=== PATIENT | male | born 1970 | race Caucasian/White ===

== ENCOUNTER 2021-01-17 10:23 | Inpatient (IN) ==
[2021-01-17] MEDS ORDERED: Isovue-370 500 ML BOTTLE IVP ONE (11:02)
[2021-01-17] MEDS ORDERED: Cefepime HCl 2,000 MG in Water for inj. (sterile) 20 ML IVP STA (11:16)
[2021-01-17] MEDS ORDERED: MetroNIDAZOLE 500 MG/100 ML 500 MG/100 ML BAG IVPB ONE (11:16)
[2021-01-17] MEDS ORDERED: Vancomycin 1,500 MG/265 ML IV.SOLN IVPB STA (11:22)
[2021-01-17] MEDS ORDERED: Clindamycin 600 MG/50 ML 600 MG/50 ML IV.SOLN IVPB ONE (11:22)
[2021-01-17 12:17] LABS: BUN/Creatinine Ratio 13 (6-26); Basophils % 0.5 %; Blood Urea Nitrogen 8 mg/dL (6-20); Calcium 8.4 mg/dL (8.6-10.3); Carbon Dioxide 27 mEq/L (23-29); Chloride 102 mEq/L (98-107); Eosinophils # 0.1 K/mcL (0.0-0.6); Eosinophils % 1.8 %; Glucose 222 mg/dL (70-105); Hematocrit 31.6 % (37.5-50.1); Hemoglobin 10.8 g/dL (12.9-16.9); Immature Granulocytes % 0.5 % (0-4); Immature Platelets 3.2 % (1.1-6.1); Lymphocytes # 0.9 K/mcL (0.6-4.6); Lymphocytes % 22.6 %; Mean Corpuscular HGB Conc 34.2 g/dL (31.6-35.5); Mean Corpuscular Hemoglobin 36.5 pg (28.0-33.3); Mean Corpuscular Volume 106.8 fL (83.0-100.0); Monocytes % 24.1 %; Osmolality,Calculated 281 (280-300); Platelet Count 141 K/mcL (140-400); Potassium 3.7 mEq/L (3.5-5.1); Red Blood Count 2.96 M/mcL (4.19-5.50); Red Cell Distribution Width 13.6 % (11.5-14.5); Segmented Neutrophils % 50.5 %; Sodium 133 mEq/L (136-145); White Blood Count 3.9 K/mcL (4.3-11.1); eGFR For African Americans > 60 (> 60); eGFR For Non-African Americans > 60 (> 60)
[2021-01-17 12:18] LABS: Monocytes # 0.9 K/mcL (0.0-1.3)
[2021-01-17 13:08] LABS: Platelet Estimate Normal (Normal)
[2021-01-17 13:56] LABS: C-Reactive Protein 48 mg/L (Less than 10)
[2021-01-17] MEDS ORDERED: *HR* HYDROmorphone (PF) 1 MG/ML SYRINGE IVP STA (14:06)
[2021-01-17] MEDS ORDERED: Naloxone 0.4 MG/ML INJ IVP PRN (15:08)
[2021-01-17] MEDS ORDERED: Ondansetron 4 MG/2 ML VIAL IVP PRN (15:08)
[2021-01-17] MEDS ORDERED: *HR* Dextrose 50 % in Water (Syg) 50 ML SYRINGE IVP PRN (15:17)
[2021-01-17] MEDS ORDERED: D5% in Water 1,000 ML IVC PRN (15:17)
[2021-01-17] MEDS ORDERED: Dextrose Gel 15 GM/37.5 ML TUBE PO PRN ×2 (15:17)
[2021-01-17] MEDS: Insulin LISPRO 300 UNITS/3 ML VIAL SUBQ SCH ×2 (18:57→23:00)
[2021-01-17] MEDS: Cefepime HCl 2,000 MG in Water for inj. (sterile) 20 ML IVP SCH (20:57)
[2021-01-17] MEDS: Clindamycin 600 MG/50 ML 600 MG/50 ML IV.SOLN IVPB SCH (20:57)
[2021-01-17] MEDS: *HR* Heparin 5,000 UNIT/ML VIAL SQ SCH (21:54)
[2021-01-17] MEDS: Ringers Solution, Lactated 1,000 ML IVC SCH (21:54)
[2021-01-18] MEDS: Vancomycin 1,500 MG/265 ML IV.SOLN IVPB SCH ×2 (00:41→15:56)
[2021-01-18 00:55] LABS: Immature Granulocytes % 0.4 % (0-4)
[2021-01-18 00:57] LABS: Basophils % 0.4 %; Eosinophils # 0.1 K/mcL (0.0-0.6); Eosinophils % 3.6 %; Hematocrit 28.5 % (37.5-50.1); Hemoglobin 9.6 g/dL (12.9-16.9); Immature Platelets 2.2 % (1.1-6.1); Lymphocytes # 0.8 K/mcL (0.6-4.6); Lymphocytes % 31.2 %; Mean Corpuscular HGB Conc 33.7 g/dL (31.6-35.5); Mean Corpuscular Hemoglobin 35.4 pg (28.0-33.3); Mean Corpuscular Volume 105.2 fL (83.0-100.0); Mean Platelet Volume 10.3 fL (9.4-12.4); Monocytes # 0.6 K/mcL (0.0-1.3); Monocytes % 23.3 %; Platelet Count 106 K/mcL (140-400); Red Blood Count 2.71 M/mcL (4.19-5.50); Red Cell Distribution Width 13.6 % (11.5-14.5); Segmented Neutrophils % 41.1 %; White Blood Count 2.5 K/mcL (4.3-11.1)
[2021-01-18 01:02] LABS: INR 1.6
[2021-01-18 01:14] LABS: Albumin 2.4 g/dL (3.5-5.7); Albumin/Globulin Ratio 0.8 (1.1-2.2); Bilirubin,Direct 0.6 mg/dL (0.0-0.2); Bilirubin,Indirect 0.8 mg/dL (0.0-1.0); Bilirubin,Total 1.4 mg/dL (0.3-1.0); Total Protein 5.4 g/dL (6.4-8.9)
[2021-01-18 01:15] LABS: Blood Urea Nitrogen 5 mg/dL (6-20); Carbon Dioxide 28 mEq/L (23-29); Chloride 104 mEq/L (98-107); Potassium 3.6 mEq/L (3.5-5.1); Sodium 135 mEq/L (136-145)
[2021-01-18 01:16] LABS: BUN/Creatinine Ratio 10 (6-26); Glucose 172 mg/dL (70-105); Magnesium 1.8 mg/dL (1.6-2.6); Osmolality,Calculated 281 (280-300); Phosphorous 2.1 mg/dL (2.7-4.5); eGFR For African Americans > 60 (> 60); eGFR For Non-African Americans > 60 (> 60)
[2021-01-18 01:21] LABS: Platelet Estimate Slight Decrease (Normal)
[2021-01-18] MEDS: *HR* Heparin 5,000 UNIT/ML VIAL SQ SCH ×3 (05:07→20:35)
[2021-01-18] MEDS: Cefepime HCl 2,000 MG in Water for inj. (sterile) 20 ML IVP SCH ×2 (05:08→15:50)
[2021-01-18] MEDS: Clindamycin 600 MG/50 ML 600 MG/50 ML IV.SOLN IVPB SCH ×2 (05:08→15:50)
[2021-01-18] MEDS: Insulin LISPRO 300 UNITS/3 ML VIAL SUBQ SCH ×3 (05:35→16:57)
[2021-01-18 08:31] LABS: Estimated Average Glucose 111 mg/dl; Hemoglobin A1C 5.5 %
[2021-01-18] MEDS ORDERED: *HR* Propofol 200 MG/20 ML VIAL IVP ONE (11:29)
[2021-01-18] MEDS ORDERED: *HR* FentaNYL (PF) 100 MCG/2 ML VIAL ONE (11:30)
[2021-01-18] MEDS ORDERED: Ketorolac 15 MG/ML VIAL IVP PRN (11:35)
[2021-01-18] MEDS ORDERED: *HR* OxyCODONE Immed Rel 5 MG TABLET PO PRN (11:35)
[2021-01-18] MEDS ORDERED: Famotidine 20 MG/2 ML VIAL IVP ONE (11:45)
[2021-01-18] MEDS ORDERED: Acetaminophen IV 1,000 MG/100 ML BAG IVPB ONE (11:45)
[2021-01-18] MEDS ORDERED: Lidocaine/EPI 1:100k 1% 20 ML VIAL ONE (11:56)
[2021-01-18] MEDS ORDERED: Ethanol\\Acetic Acid\\Na Ace\\Ben 1,000 ML IRRIG.SOLN IR ONE (12:47)
[2021-01-18] MEDS ORDERED: Ketorolac 30 MG/ML VIAL ONE (13:03)
[2021-01-18] MEDS ORDERED: Ondansetron 4 MG/2 ML VIAL ONE (13:07)
[2021-01-18] MEDS ORDERED: Ringers Solution, Lactated 1,000 ML ONE (13:09)
[2021-01-18] MEDS: *HR* HYDROmorphone PF 0.5 MG/0.5 ML SYRINGE IVP PRN ×4 (13:55→14:10)
[2021-01-18] MEDS ORDERED: Pregabalin 50 MG CAPSULE PO ONE (14:20)
[2021-01-18] MEDS: Ringers Solution, Lactated 1,000 ML IVC SCH (17:55)
[2021-01-18] MEDS: OLANZapine 5 MG TAB.RAPDIS PO SCH (20:35)
[2021-01-19] MEDS: Cefepime HCl 2,000 MG in Water for inj. (sterile) 20 ML IVP SCH ×4 (01:00→22:22)
[2021-01-19] MEDS: Clindamycin 600 MG/50 ML 600 MG/50 ML IV.SOLN IVPB SCH ×4 (01:00→22:24)
[2021-01-19 01:48] LABS: Hemoglobin 9.9 g/dL (12.9-16.9)
[2021-01-19 01:50] LABS: Basophils % 0.3 %; Hematocrit 30.4 % (37.5-50.1); Immature Granulocytes % 0.6 % (0-4); Immature Platelets 2.8 % (1.1-6.1); Lymphocytes # 0.4 K/mcL (0.6-4.6); Lymphocytes % 12.5 %; Mean Corpuscular HGB Conc 32.6 g/dL (31.6-35.5); Mean Corpuscular Hemoglobin 35.6 pg (28.0-33.3); Mean Corpuscular Volume 109.4 fL (83.0-100.0); Monocytes # 0.4 K/mcL (0.0-1.3); Monocytes % 12.5 %; Neutrophils # 2.6 K/mcL (1.6-8.9); Red Blood Count 2.78 M/mcL (4.19-5.50); Red Cell Distribution Width 13.3 % (11.5-14.5); Segmented Neutrophils % 74.1 %; White Blood Count 3.5 K/mcL (4.3-11.1)
[2021-01-19] MEDS: Insulin LISPRO 300 UNITS/3 ML VIAL SUBQ SCH ×2 (01:58→06:31)
[2021-01-19 02:00] LABS: BUN/Creatinine Ratio 16 (6-26); Blood Urea Nitrogen 15 mg/dL (6-20); Calcium 8.2 mg/dL (8.6-10.3); Carbon Dioxide 23 mEq/L (23-29); Chloride 103 mEq/L (98-107); Glucose 394 mg/dL (70-105); Osmolality,Calculated 291 (280-300); Potassium 4.3 mEq/L (3.5-5.1); Sodium 132 mEq/L (136-145); eGFR For African Americans > 60 (> 60); eGFR For Non-African Americans > 60 (> 60)
[2021-01-19 02:29] LABS: Platelet Count 99 K/mcL (140-400); Platelet Estimate Decreased (Normal)
[2021-01-19] MEDS: Vancomycin 1,500 MG/265 ML IV.SOLN IVPB SCH (02:43)
[2021-01-19] MEDS: *HR* Heparin 5,000 UNIT/ML VIAL SQ SCH (06:32)
[2021-01-19] MEDS ORDERED: Famotidine 20 MG/2 ML VIAL IVP ONE (07:00)
[2021-01-19] MEDS ORDERED: Acetaminophen IV 1,000 MG/100 ML BAG IVPB ONE (07:00)
[2021-01-19] MEDS ORDERED: Pregabalin 75 MG CAPSULE PO ONE (07:00)
[2021-01-19] MEDS: Tenofovir Disoproxil Fumarate 300 MG TABLET PO SCH (07:50)
[2021-01-19] MEDS: Vancomycin 1,750 MG/517.5 ML IV.SOLN IVPB SCH (13:48)
[2021-01-19] MEDS: OLANZapine 5 MG TAB.RAPDIS PO SCH (22:21)
[2021-01-20] MEDS: Vancomycin 1,750 MG/517.5 ML IV.SOLN IVPB SCH (02:41)
[2021-01-20] MEDS: Cefepime HCl 2,000 MG in Water for inj. (sterile) 20 ML IVP SCH ×3 (04:23→21:27)
[2021-01-20] MEDS: Clindamycin 600 MG/50 ML 600 MG/50 ML IV.SOLN IVPB SCH ×3 (04:25→21:29)
[2021-01-20 06:44] LABS: Basophils % 0.2 %; Eosinophils % 0.4 %; Hematocrit 26.2 % (37.5-50.1); Hemoglobin 9.1 g/dL (12.9-16.9); Immature Granulocytes % 1.2 % (0-4); Lymphocytes # 0.6 K/mcL (0.6-4.6); Lymphocytes % 11.4 %; Mean Corpuscular HGB Conc 34.7 g/dL (31.6-35.5); Mean Corpuscular Hemoglobin 36.7 pg (28.0-33.3); Mean Corpuscular Volume 105.6 fL (83.0-100.0); Mean Platelet Volume 10.7 fL (9.4-12.4); Monocytes # 0.6 K/mcL (0.0-1.3); Monocytes % 12.2 %; Neutrophils # 3.9 K/mcL (1.6-8.9); Platelet Count 107 K/mcL (140-400); Red Blood Count 2.48 M/mcL (4.19-5.50); Red Cell Distribution Width 13.5 % (11.5-14.5); Segmented Neutrophils % 74.6 %; White Blood Count 5.2 K/mcL (4.3-11.1)
[2021-01-20 07:04] LABS: BUN/Creatinine Ratio 25 (6-26); Blood Urea Nitrogen 16 mg/dL (6-20); Calcium 7.9 mg/dL (8.6-10.3); Carbon Dioxide 29 mEq/L (23-29); Chloride 105 mEq/L (98-107); Glucose 211 mg/dL (70-105); Osmolality,Calculated 285 (280-300); Potassium 4.8 mEq/L (3.5-5.1); Sodium 134 mEq/L (136-145); eGFR For African Americans > 60 (> 60); eGFR For Non-African Americans > 60 (> 60)
[2021-01-20] MEDS: Tenofovir Disoproxil Fumarate 300 MG TABLET PO SCH (09:42)
[2021-01-20] MEDS: Insulin LISPRO 300 UNITS/3 ML VIAL SUBQ SCH ×2 (14:35→18:49)
[2021-01-20] MEDS: OLANZapine 5 MG TAB.RAPDIS PO SCH (21:26)
[2021-01-21 01:13] LABS: Basophils % 0.6 %; Eosinophils # 0.1 K/mcL (0.0-0.6); Eosinophils % 2.3 %; Hematocrit 27.7 % (37.5-50.1); Hemoglobin 9.6 g/dL (12.9-16.9); Immature Granulocytes % 2.7 % (0-4); Lymphocytes # 0.9 K/mcL (0.6-4.6); Lymphocytes % 18.1 %; Mean Corpuscular HGB Conc 34.7 g/dL (31.6-35.5); Mean Corpuscular Hemoglobin 37.1 pg (28.0-33.3); Mean Corpuscular Volume 106.9 fL (83.0-100.0); Mean Platelet Volume 10.7 fL (9.4-12.4); Monocytes # 0.8 K/mcL (0.0-1.3); Monocytes % 16.5 %; Neutrophils # 2.9 K/mcL (1.6-8.9); Platelet Count 103 K/mcL (140-400); Red Blood Count 2.59 M/mcL (4.19-5.50); Red Cell Distribution Width 14.1 % (11.5-14.5); Segmented Neutrophils % 59.8 %; White Blood Count 4.9 K/mcL (4.3-11.1)
[2021-01-21] MEDS: Insulin LISPRO 300 UNITS/3 ML VIAL SUBQ SCH ×4 (01:18→17:40)
[2021-01-21 01:33] LABS: BUN/Creatinine Ratio 24 (6-26); Blood Urea Nitrogen 14 mg/dL (6-20); Carbon Dioxide 29 mEq/L (23-29); Chloride 105 mEq/L (98-107); Glucose 222 mg/dL (70-105); Magnesium 1.9 mg/dL (1.6-2.6); Osmolality,Calculated 287 (280-300); Phosphorous 2.4 mg/dL (2.7-4.5); Potassium 4.3 mEq/L (3.5-5.1); Sodium 135 mEq/L (136-145); eGFR For African Americans > 60 (> 60); eGFR For Non-African Americans > 60 (> 60)
[2021-01-21 01:36] LABS: Estimated Average Glucose 111 mg/dl; Hemoglobin A1C 5.5 %
[2021-01-21] MEDS: Cefepime HCl 2,000 MG in Water for inj. (sterile) 20 ML IVP SCH (06:44)
[2021-01-21] MEDS: Clindamycin 600 MG/50 ML 600 MG/50 ML IV.SOLN IVPB SCH (06:45)
[2021-01-21] MEDS: Tenofovir Disoproxil Fumarate 300 MG TABLET PO SCH (08:15)
[2021-01-21] MEDS: Propranolol LA (24 HR) 80 MG CAP.SA.24H PO SCH (08:15)
[2021-01-21] MEDS: Ertapenem 1,000 MG in 0.9 % Sodium Chloride Mini Bag 100 ML IVPB SCH (15:19)
[2021-01-21] MEDS: OLANZapine 5 MG TAB.RAPDIS PO SCH (19:34)
[2021-01-22] MEDS: Insulin LISPRO 300 UNITS/3 ML VIAL SUBQ SCH ×4 (00:09→17:08)
[2021-01-22 05:48] LABS: Basophils # 0.1 K/mcL (0.0-0.2); Basophils % 1.2 %; Eosinophils # 0.2 K/mcL (0.0-0.6); Eosinophils % 3.7 %; Hematocrit 30.4 % (37.5-50.1); Hemoglobin 10.3 g/dL (12.9-16.9); Immature Granulocytes % 7.2 % (0-4); Lymphocytes # 1.3 K/mcL (0.6-4.6); Mean Corpuscular HGB Conc 33.9 g/dL (31.6-35.5); Mean Corpuscular Hemoglobin 36.4 pg (28.0-33.3); Mean Corpuscular Volume 107.4 fL (83.0-100.0); Mean Platelet Volume 10.7 fL (9.4-12.4); Monocytes # 0.9 K/mcL (0.0-1.3); Platelet Count 109 K/mcL (140-400); Red Blood Count 2.83 M/mcL (4.19-5.50); Red Cell Distribution Width 14.4 % (11.5-14.5); Segmented Neutrophils % 50.9 %; White Blood Count 5.9 K/mcL (4.3-11.1)
[2021-01-22 06:10] LABS: BUN/Creatinine Ratio 20 (6-26); Blood Urea Nitrogen 13 mg/dL (6-20); Calcium 8.1 mg/dL (8.6-10.3); Carbon Dioxide 28 mEq/L (23-29); Chloride 106 mEq/L (98-107); Glucose 131 mg/dL (70-105); Magnesium 1.8 mg/dL (1.6-2.6); Osmolality,Calculated 284 (280-300); Phosphorous 3.1 mg/dL (2.7-4.5); Potassium 4.3 mEq/L (3.5-5.1); Sodium 136 mEq/L (136-145); eGFR For African Americans > 60 (> 60); eGFR For Non-African Americans > 60 (> 60)
[2021-01-22 06:20] LABS: Anisocytosis 1+ (Not Present); Platelet Estimate Slight Decrease (Normal); Polychromasia 1+ (Not Present)
[2021-01-22] MEDS: Tenofovir Disoproxil Fumarate 300 MG TABLET PO SCH (08:41)
[2021-01-22] MEDS: Propranolol LA (24 HR) 80 MG CAP.SA.24H PO SCH (08:41)
[2021-01-22] MEDS: Ertapenem 1,000 MG in 0.9 % Sodium Chloride Mini Bag 100 ML IVPB SCH (08:42)
[2021-01-22] MEDS: OLANZapine 5 MG TAB.RAPDIS PO SCH (22:02)
[2021-01-23] MEDS: Insulin LISPRO 300 UNITS/3 ML VIAL SUBQ SCH ×4 (00:22→16:24)
[2021-01-23 06:12] LABS: Basophils # 0.1 K/mcL (0.0-0.2); Basophils % 1.3 %; Eosinophils # 0.2 K/mcL (0.0-0.6); Hematocrit 31.2 % (37.5-50.1); Hemoglobin 10.2 g/dL (12.9-16.9); Immature Granulocytes % 8.1 % (0-4); Lymphocytes # 1.2 K/mcL (0.6-4.6); Lymphocytes % 18.5 %; Mean Corpuscular HGB Conc 32.7 g/dL (31.6-35.5); Mean Corpuscular Hemoglobin 35.3 pg (28.0-33.3); Mean Platelet Volume 10.8 fL (9.4-12.4); Monocytes # 0.8 K/mcL (0.0-1.3); Monocytes % 12.5 %; Platelet Count 102 K/mcL (140-400); Red Blood Count 2.89 M/mcL (4.19-5.50); Red Cell Distribution Width 14.6 % (11.5-14.5); Segmented Neutrophils % 56.6 %; White Blood Count 6.3 K/mcL (4.3-11.1)
[2021-01-23 06:16] LABS: Neutrophils # 3.6 K/mcL (1.6-8.9)
[2021-01-23 06:30] LABS: Alanine Aminotransferase 25 Units/L (7-52); Albumin 2.2 g/dL (3.5-5.7); Albumin/Globulin Ratio 0.7 (1.1-2.2); Alkaline Phosphatase 134 Units/L (34-104); Aspartate Amino Transferase 41 Units/L (13-39); BUN/Creatinine Ratio 19 (6-26); Blood Urea Nitrogen 11 mg/dL (6-20); Calcium 8.3 mg/dL (8.6-10.3); Carbon Dioxide 32 mEq/L (23-29); Chloride 104 mEq/L (98-107); Globulin 3.1 g/dL (2.4-3.5); Glucose 161 mg/dL (70-105); Osmolality,Calculated 285 (280-300); Potassium 4.2 mEq/L (3.5-5.1); Sodium 136 mEq/L (136-145); Total Protein 5.3 g/dL (6.4-8.9); eGFR For African Americans > 60 (> 60); eGFR For Non-African Americans > 60 (> 60)
[2021-01-23] MEDS: Propranolol LA (24 HR) 80 MG CAP.SA.24H PO SCH (08:41)
[2021-01-23] MEDS: Ertapenem 1,000 MG in 0.9 % Sodium Chloride Mini Bag 100 ML IVPB SCH (08:41)
[2021-01-23] MEDS: Tenofovir Disoproxil Fumarate 300 MG TABLET PO SCH (08:41)
[2021-01-23] MEDS ORDERED: *HR* OxyCODONE Immed Rel 5 MG TABLET PO PRN (11:57)
[2021-01-23] MEDS ORDERED: Lidocaine/EPI 1:100k 1% 20 ML VIAL ONE (11:59)
[2021-01-23] MEDS ORDERED: Lidocaine -MPF 2% 5 ML VIAL ONE (12:01)
[2021-01-23] MEDS ORDERED: *HR* FentaNYL (PF) 100 MCG/2 ML VIAL ONE (12:01)
[2021-01-23] MEDS ORDERED: *HR* Midazolam HCl 2 MG/2 ML VIAL ONE (12:01)
[2021-01-23] MEDS ORDERED: Famotidine 20 MG/2 ML VIAL IVP ONE (12:28)
[2021-01-23] MEDS ORDERED: Ethanol\\Acetic Acid\\Na Ace\\Ben 1,000 ML IRRIG.SOLN IR ONE (13:16)
[2021-01-23] MEDS: *HR* HYDROmorphone PF 0.5 MG/0.5 ML SYRINGE IVP PRN ×4 (14:12→14:35)
[2021-01-23] MEDS: OLANZapine 5 MG TAB.RAPDIS PO SCH (19:41)
[2021-01-24] MEDS: Insulin LISPRO 300 UNITS/3 ML VIAL SUBQ SCH ×4 (01:20→16:07)
[2021-01-24 05:28] LABS: Immature Granulocytes % 3.2 % (0-4); Mean Platelet Volume 10.9 fL (9.4-12.4)
[2021-01-24 05:30] LABS: Basophils % 0.2 %; Eosinophils % 0.2 %; Hematocrit 29.6 % (37.5-50.1); Hemoglobin 9.9 g/dL (12.9-16.9); Immature Platelets 3.2 % (1.1-6.1); Lymphocytes # 0.6 K/mcL (0.6-4.6); Lymphocytes % 8.6 %; Mean Corpuscular HGB Conc 33.4 g/dL (31.6-35.5); Mean Corpuscular Volume 107.6 fL (83.0-100.0); Monocytes # 0.7 K/mcL (0.0-1.3); Monocytes % 10.5 %; Red Blood Count 2.75 M/mcL (4.19-5.50); Red Cell Distribution Width 14.1 % (11.5-14.5); Segmented Neutrophils % 77.3 %; White Blood Count 6.5 K/mcL (4.3-11.1)
[2021-01-24 05:33] LABS: Platelet Count 90 K/mcL (140-400)
[2021-01-24 05:46] LABS: Alanine Aminotransferase 24 Units/L (7-52); Albumin 2.3 g/dL (3.5-5.7); Albumin/Globulin Ratio 0.8 (1.1-2.2); Alkaline Phosphatase 123 Units/L (34-104); Aspartate Amino Transferase 41 Units/L (13-39); BUN/Creatinine Ratio 21 (6-26); Bilirubin,Total 1.1 mg/dL (0.3-1.0); Blood Urea Nitrogen 15 mg/dL (6-20); Calcium 8.4 mg/dL (8.6-10.3); Carbon Dioxide 29 mEq/L (23-29); Chloride 103 mEq/L (98-107); Globulin 2.9 g/dL (2.4-3.5); Glucose 351 mg/dL (70-105); Osmolality,Calculated 293 (280-300); Potassium 4.9 mEq/L (3.5-5.1); Sodium 134 mEq/L (136-145); Total Protein 5.2 g/dL (6.4-8.9); eGFR For African Americans > 60 (> 60); eGFR For Non-African Americans > 60 (> 60)
[2021-01-24] MEDS: Tenofovir Disoproxil Fumarate 300 MG TABLET PO SCH (07:07)
[2021-01-24] MEDS: Propranolol LA (24 HR) 80 MG CAP.SA.24H PO SCH (07:07)
[2021-01-24] MEDS: Ertapenem 1,000 MG in 0.9 % Sodium Chloride Mini Bag 100 ML IVPB SCH (07:08)
[2021-01-24] MEDS: OLANZapine 5 MG TAB.RAPDIS PO SCH (20:25)
[2021-01-24] MEDS ORDERED: Insulin DETEMIR 100 UNIT/ML X5UNITS SUBQ SCH (21:00)
[2021-01-25 05:00] LABS: Monocytes # 0.9 K/mcL (0.0-1.3); Monocytes % 13.8 %; Red Cell Distribution Width 14.1 % (11.5-14.5); White Blood Count 6.4 K/mcL (4.3-11.1)
[2021-01-25 05:02] LABS: Basophils % 0.3 %; Eosinophils # 0.1 K/mcL (0.0-0.6); Eosinophils % 1.6 %; Hematocrit 28.8 % (37.5-50.1); Hemoglobin 9.8 g/dL (12.9-16.9); Immature Platelets 3.8 % (1.1-6.1); Lymphocytes # 0.9 K/mcL (0.6-4.6); Lymphocytes % 14.5 %; Mean Corpuscular Hemoglobin 36.3 pg (28.0-33.3); Mean Corpuscular Volume 106.7 fL (83.0-100.0); Neutrophils # 4.3 K/mcL (1.6-8.9); Segmented Neutrophils % 67.8 %
[2021-01-25 05:03] LABS: Platelet Count 90 K/mcL (140-400)
[2021-01-25] MEDS ORDERED: *HR* Enoxaparin 40 MG/0.4 ML SYRINGE SQ SCH (06:00)
[2021-01-25] MEDS: Propranolol LA (24 HR) 80 MG CAP.SA.24H PO SCH (07:59)
[2021-01-25] MEDS: Tenofovir Disoproxil Fumarate 300 MG TABLET PO SCH (07:59)
[2021-01-25] MEDS: Ertapenem 1,000 MG in 0.9 % Sodium Chloride Mini Bag 100 ML IVPB SCH (07:59)
[2021-01-25] MEDS: Insulin LISPRO 300 UNITS/3 ML VIAL SUBQ SCH ×3 (08:05→17:36)
[2021-01-25 08:06] VITALS: O2SAT 95
[2021-01-25 08:49] LABS: Alanine Aminotransferase 28 Units/L (7-52); Albumin 2.4 g/dL (3.5-5.7); Albumin/Globulin Ratio 0.9 (1.1-2.2); Alkaline Phosphatase 142 Units/L (34-104); Aspartate Amino Transferase 39 Units/L (13-39); BUN/Creatinine Ratio 24 (6-26); Bilirubin,Total 0.9 mg/dL (0.3-1.0); Blood Urea Nitrogen 13 mg/dL (6-20); Calcium 8.2 mg/dL (8.6-10.3); Carbon Dioxide 30 mEq/L (23-29); Chloride 104 mEq/L (98-107); Globulin 2.8 g/dL (2.4-3.5); Glucose 239 mg/dL (70-105); Osmolality,Calculated 288 (280-300); Potassium 3.8 mEq/L (3.5-5.1); Sodium 135 mEq/L (136-145); Total Protein 5.2 g/dL (6.4-8.9); eGFR For African Americans > 60 (> 60); eGFR For Non-African Americans > 60 (> 60)
[2021-01-25 14:17] LABS: Adenovirus Not Detected (Not Detect); Bordetella Pertussis Not Detected (Not Detect); Chlamydophila pneumoniae Not Detected (Not Detect); Coronavirus 229E Not Detected (Not Detect); Coronavirus HKU1 Not Detected (Not Detect); Coronavirus NL63 Not Detected (Not Detect); Coronavirus OC43 Not Detected (Not Detect); Human Metapneumovirus Not Detected (Not Detect); Human Rhinovirus/Enterovirus Not Detected (Not Detect); Influenza A Subtype 2009 H1 Not Detected (Not Detect); Influenza B Not Detected (Not Detect); Mycoplasma pneumoniae Not Detected (Not Detect); Parainfluenza Virus 1 Not Detected (Not Detect); Parainfluenza Virus 2 Not Detected (Not Detect); Parainfluenza Virus 3 Not Detected (Not Detect); Parainfluenza Virus 4 Not Detected (Not Detect); Respiratory Syncytial Virus Not Detected (Not Detect); SARS-CoV-2 Not Detected (Not Detect)
[2021-01-25 20:04] VITALS: BP 130/76; PULSE 79; TEMP 98.4
== END 2021-01-24 21:00 | DRG 316 ==
LOC: EMEROOARM 10:23 → 3BNU 10:23 → SUATTDRO 15:33 → 3BNU 17:04
PROVIDERS: ADMIT Student in an Organized Health Care Education/Training Program; ATTEND Internal Medicine

== ENCOUNTER 2021-03-08 19:30 | Inpatient (IN) ==
[2021-03-08 22:22] LABS: Basophils % 0.4 %; Red Cell Distribution Width 13.8 % (11.5-14.5)
[2021-03-08 22:24] LABS: Eosinophils # 0.1 K/mcL (0.0-0.6); Eosinophils % 2.7 %; Immature Granulocytes % 0.4 % (0-4); Immature Platelets 4.6 % (1.1-6.1); Lymphocytes # 0.7 K/mcL (0.6-4.6); Lymphocytes % 27.4 %; Mean Corpuscular HGB Conc 33.3 g/dL (31.6-35.5); Mean Platelet Volume 11.2 fL (9.4-12.4); Monocytes # 0.5 K/mcL (0.0-1.3); Monocytes % 18.6 %; Neutrophils # 1.3 K/mcL (1.6-8.9); Red Blood Count 2.94 M/mcL (4.19-5.50); Segmented Neutrophils % 50.5 %; White Blood Count 2.6 K/mcL (4.3-11.1)
[2021-03-08 22:25] LABS: Platelet Count 57 K/mcL (140-400)
[2021-03-08 22:37] LABS: BUN/Creatinine Ratio 16 (6-26); Blood Urea Nitrogen 11 mg/dL (6-20); Calcium 8.3 mg/dL (8.6-10.3); Carbon Dioxide 26 mEq/L (23-29); Chloride 102 mEq/L (98-107); Glucose 149 mg/dL (70-105); Osmolality,Calculated 280 (280-300); Potassium 3.6 mEq/L (3.5-5.1); Sodium 134 mEq/L (136-145); eGFR For African Americans > 60 (> 60); eGFR For Non-African Americans > 60 (> 60)
[2021-03-08] MEDS ORDERED: Piperacillin/Tazobactam 3.375 GM in 0.9 % Sodium Chloride Mini Bag 100 ML IVPB ONE (23:22)
[2021-03-08] MEDS ORDERED: Vancomycin 2,000 MG/520 ML IV.SOLN IVPB ONE (23:22)
[2021-03-09] MEDS ORDERED: 0.9 % Sodium Chloride 1,000 ML IVC ONE (00:31)
[2021-03-09] MEDS ORDERED: MOM Conc 10 ML UD.LIQ PO PRN ×2 (00:57→20:05)
[2021-03-09] MEDS ORDERED: Melatonin 3 MG TABLET PO PRN ×2 (00:57→20:05)
[2021-03-09] MEDS ORDERED: Acetaminophen 325 MG TABLET PO PRN (00:57)
[2021-03-09] MEDS ORDERED: Ondansetron 4 MG/2 ML VIAL IVP PRN ×2 (00:57→20:05)
[2021-03-09] MEDS ORDERED: Naloxone 0.4 MG/ML INJ IVP PRN ×2 (00:57→20:05)
[2021-03-09] MEDS ORDERED: Dextrose Gel 15 GM/37.5 ML TUBE PO PRN ×4 (03:13→20:05)
[2021-03-09] MEDS ORDERED: D5% in Water 1,000 ML IVC PRN ×2 (03:13→20:05)
[2021-03-09] MEDS ORDERED: *HR* Dextrose 50 % in Water (Syg) 50 ML SYRINGE IVP PRN ×2 (03:13→20:05)
[2021-03-09] MEDS ORDERED: Perflutren Lipid Microsphere 1.3 ML in 0.9 % Sodium Chloride 8.7 ML IVP PRN ×2 (04:39→20:05)
[2021-03-09] MEDS ORDERED: Albumin 25% 25gram/100mL 25 GM/100 ML IV.SOLN IVPB ONE (04:43)
[2021-03-09] MEDS ORDERED: 0.9 % Sodium Chloride 1,000 ML IVC SCH ×2 (04:45→20:05)
[2021-03-09 04:50] LABS: Hemoglobin 9.6 g/dL (12.9-16.9); Red Cell Distribution Width 13.7 % (11.5-14.5)
[2021-03-09 04:52] LABS: Basophils % 0.5 %; Eosinophils # 0.1 K/mcL (0.0-0.6); Eosinophils % 3.6 %; Hematocrit 28.5 % (37.5-50.1); Immature Granulocytes % 0.5 % (0-4); Immature Platelets 4.4 % (1.1-6.1); Lymphocytes # 0.7 K/mcL (0.6-4.6); Lymphocytes % 32.6 %; Mean Corpuscular HGB Conc 33.7 g/dL (31.6-35.5); Mean Corpuscular Hemoglobin 33.8 pg (28.0-33.3); Mean Corpuscular Volume 100.4 fL (83.0-100.0); Mean Platelet Volume 10.6 fL (9.4-12.4); Monocytes # 0.5 K/mcL (0.0-1.3); Monocytes % 20.4 %; Neutrophils # 0.9 K/mcL (1.6-8.9); Red Blood Count 2.84 M/mcL (4.19-5.50); Segmented Neutrophils % 42.4 %; White Blood Count 2.2 K/mcL (4.3-11.1)
[2021-03-09 04:55] LABS: Platelet Count 56 K/mcL (140-400)
[2021-03-09 05:03] LABS: INR 1.6; Prothrombin Time 18.1 Seconds (9.4-12.1)
[2021-03-09 05:06] LABS: Activated Partial Thrombo Time 39.1 Seconds (26.0-36.0); BUN/Creatinine Ratio 16 (6-26); Blood Urea Nitrogen 10 mg/dL (6-20); Carbon Dioxide 27 mEq/L (23-29); Chloride 105 mEq/L (98-107); Glucose 102 mg/dL (70-105); Osmolality,Calculated 281 (280-300); Potassium 3.7 mEq/L (3.5-5.1); Sodium 136 mEq/L (136-145); eGFR For African Americans > 60 (> 60); eGFR For Non-African Americans > 60 (> 60)
[2021-03-09 05:15] LABS: Alanine Aminotransferase 19 Units/L (7-52); Albumin 2.5 g/dL (3.5-5.7); Alkaline Phosphatase 92 Units/L (34-104); Aspartate Amino Transferase 53 Units/L (13-39); Bilirubin,Direct 0.7 mg/dL (0.0-0.2); Bilirubin,Indirect 1.3 mg/dL (0.0-1.0); Globulin 2.6 g/dL (2.4-3.5); Total Protein 5.1 g/dL (6.4-8.9)
[2021-03-09] MEDS: Insulin LISPRO 300 UNITS/3 ML VIAL SUBQ SCH ×2 (06:19→12:09)
[2021-03-09] MEDS ORDERED: Cefepime HCl 1,000 MG in Water for inj. (sterile) 10 ML IVP SCH (08:00)
[2021-03-09] MEDS: Piperacillin/Tazobactam 3.375 GM in 0.9 % Sodium Chloride Mini Bag 100 ML IVPB SCH ×2 (08:59→19:36)
[2021-03-09] MEDS ORDERED: *HR* FentaNYL (PF) 100 MCG/2 ML VIAL ONE (15:58)
[2021-03-09] MEDS ORDERED: *HR* Propofol 200 MG/20 ML VIAL IVP ONE (15:58)
[2021-03-09] MEDS ORDERED: Ondansetron 4 MG/2 ML VIAL ONE (15:58)
[2021-03-09] MEDS ORDERED: Lidocaine -MPF 2% 5 ML VIAL ONE (15:58)
[2021-03-09] MEDS ORDERED: Vancomycin 1,500 MG/265 ML IV.SOLN IVPB SCH (16:00)
[2021-03-09] MEDS ORDERED: Ringers Solution, Lactated 1,000 ML IVC SCH (16:00)
[2021-03-09] MEDS ORDERED: *HR* Midazolam HCl 2 MG/2 ML VIAL ONE (16:22)
[2021-03-09] MEDS ORDERED: Ketorolac 30 MG/ML VIAL ONE (16:22)
[2021-03-09] MEDS ORDERED: *HR* Metoprolol 5 MG/5 ML VIAL IVP ONE ×3 (16:27→20:05)
[2021-03-09] MEDS ORDERED: Lidocaine/EPI 1:100k 1% 30 ML VIAL ONE (16:35)
[2021-03-09 18:56] LABS: Amphetamine Screen,Urine Positive ng/mL (Cutoff=1000); Barbiturate Screen,Urine Negative ng/mL (Cutoff=200); Benzodiazepines Screen,Urine Negative ng/mL (Cutoff=200); Cannabinoid Screen,Urine Negative ng/mL (Cutoff = 50); Cocaine Screen,Urine Negative ng/mL (Cutoff= 300); Opiate Screen,Urine Negative ng/mL (Cutoff=300); Phencyclidine Screen,Urine Negative ng/mL (Cutoff=25)
[2021-03-09] MEDS ORDERED: 0.9 % Sodium Chloride 1,000 ML ONE (19:29)
[2021-03-09] MEDS: Ringers Solution, Lactated 1,000 ML IVC SCH (21:36)
[2021-03-10] MEDS: Insulin LISPRO 300 UNITS/3 ML VIAL SUBQ SCH ×5 (00:02→20:58)
[2021-03-10] MEDS: Piperacillin/Tazobactam 3.375 GM in 0.9 % Sodium Chloride Mini Bag 100 ML IVPB SCH ×3 (03:07→22:00)
[2021-03-10] MEDS: Vancomycin 1,500 MG/265 ML IV.SOLN IVPB SCH ×2 (06:40→18:04)
[2021-03-10 07:04] LABS: Immature Granulocytes % 0.5 % (0-4)
[2021-03-10 07:06] LABS: Hematocrit 29.9 % (37.5-50.1); Immature Platelets 5.4 % (1.1-6.1); Lymphocytes # 0.4 K/mcL (0.6-4.6); Lymphocytes % 20.3 %; Mean Corpuscular HGB Conc 33.4 g/dL (31.6-35.5); Mean Corpuscular Volume 101.7 fL (83.0-100.0); Mean Platelet Volume 11.6 fL (9.4-12.4); Monocytes # 0.2 K/mcL (0.0-1.3); Monocytes % 8.9 %; Neutrophils # 1.4 K/mcL (1.6-8.9); Red Blood Count 2.94 M/mcL (4.19-5.50); Red Cell Distribution Width 13.4 % (11.5-14.5); Segmented Neutrophils % 70.3 %
[2021-03-10 07:20] LABS: Platelet Count 52 K/mcL (140-400)
[2021-03-10 07:35] LABS: BUN/Creatinine Ratio 18 (6-26); Blood Urea Nitrogen 12 mg/dL (6-20); Calcium 8.2 mg/dL (8.6-10.3); Carbon Dioxide 26 mEq/L (23-29); Chloride 105 mEq/L (98-107); Glucose 152 mg/dL (70-105); Osmolality,Calculated 285 (280-300); Potassium 4.1 mEq/L (3.5-5.1); Sodium 136 mEq/L (136-145); eGFR For African Americans > 60 (> 60); eGFR For Non-African Americans > 60 (> 60)
[2021-03-10] MEDS: Lactulose Oral Soln 20 GM/30 ML UDC PO SCH ×3 (13:45→20:36)
[2021-03-10] MEDS: Vancomycin 1,750 MG/517.5 ML IV.SOLN IVPB SCH (19:30)
[2021-03-10 19:43] LABS: Hepatitis A Antibody IgM Nonreactive (Nonreactive); Hepatitis B Core IgM Nonreactive (Nonreactive)
[2021-03-10] MEDS: OLANZapine 5 MG TAB.RAPDIS PO SCH (20:36)
[2021-03-10 23:14] LABS: Hepatitis B Surface Antigen Reactive (Nonreactive); Hepatitis C Virus Antibody Reactive (Nonreactive)
[2021-03-11] MEDS: Ringers Solution, Lactated 1,000 ML IVC SCH ×2 (05:16→20:16)
[2021-03-11] MEDS: Vancomycin 1,750 MG/517.5 ML IV.SOLN IVPB SCH ×2 (06:46→15:52)
[2021-03-11] MEDS: Lactulose Oral Soln 20 GM/30 ML UDC PO SCH ×4 (10:25→20:19)
[2021-03-11] MEDS: Furosemide 20 MG TABLET PO SCH (10:25)
[2021-03-11] MEDS: Insulin LISPRO 300 UNITS/3 ML VIAL SUBQ SCH ×4 (10:25→21:17)
[2021-03-11] MEDS: Piperacillin/Tazobactam 3.375 GM in 0.9 % Sodium Chloride Mini Bag 100 ML IVPB SCH ×2 (10:26→15:50)
[2021-03-11] MEDS: Tenofovir Disoproxil Fumarate 300 MG TABLET PO SCH (10:30)
[2021-03-11] MEDS ORDERED: Furosemide 20 MG/2 ML VIAL IVP ONE (13:34)
[2021-03-11] MEDS: OLANZapine 5 MG TAB.RAPDIS PO SCH (20:19)
[2021-03-11] MEDS ORDERED: Furosemide 20 MG TABLET PO ONE (20:47)
[2021-03-12] MEDS: Vancomycin 1,750 MG/517.5 ML IV.SOLN IVPB SCH ×2 (01:40→20:07)
[2021-03-12] MEDS: Piperacillin/Tazobactam 3.375 GM in 0.9 % Sodium Chloride Mini Bag 100 ML IVPB SCH (01:40)
[2021-03-12 01:58] LABS: Immature Granulocytes % 0.4 % (0-4); Red Cell Distribution Width 13.9 % (11.5-14.5)
[2021-03-12 02:00] LABS: Basophils % 0.7 %; Eosinophils # 0.1 K/mcL (0.0-0.6); Eosinophils % 3.2 %; Hematocrit 29.7 % (37.5-50.1); Hemoglobin 10.1 g/dL (12.9-16.9); Immature Platelets 3.4 % (1.1-6.1); Lymphocytes # 0.9 K/mcL (0.6-4.6); Lymphocytes % 31.8 %; Mean Corpuscular Hemoglobin 34.9 pg (28.0-33.3); Mean Corpuscular Volume 102.8 fL (83.0-100.0); Mean Platelet Volume 10.9 fL (9.4-12.4); Monocytes # 0.4 K/mcL (0.0-1.3); Monocytes % 13.8 %; Neutrophils # 1.4 K/mcL (1.6-8.9); Red Blood Count 2.89 M/mcL (4.19-5.50); Segmented Neutrophils % 50.1 %; White Blood Count 2.8 K/mcL (4.3-11.1)
[2021-03-12 02:05] LABS: Platelet Count 68 K/mcL (140-400)
[2021-03-12 02:08] LABS: BUN/Creatinine Ratio 16 (6-26); Blood Urea Nitrogen 10 mg/dL (6-20); Calcium 8.1 mg/dL (8.6-10.3); Carbon Dioxide 29 mEq/L (23-29); Chloride 106 mEq/L (98-107); Glucose 133 mg/dL (70-105); Osmolality,Calculated 287 (280-300); Potassium 3.9 mEq/L (3.5-5.1); Sodium 138 mEq/L (136-145); eGFR For African Americans > 60 (> 60); eGFR For Non-African Americans > 60 (> 60)
[2021-03-12] MEDS: Tenofovir Disoproxil Fumarate 300 MG TABLET PO SCH (09:59)
[2021-03-12] MEDS: Insulin LISPRO 300 UNITS/3 ML VIAL SUBQ SCH ×4 (10:00→20:19)
[2021-03-12] MEDS: Furosemide 20 MG TABLET PO SCH (10:00)
[2021-03-12] MEDS: Lactulose Oral Soln 20 GM/30 ML UDC PO SCH ×4 (10:02→20:10)
[2021-03-12] MEDS ORDERED: Furosemide 20 MG/2 ML VIAL IVP ONE (11:49)
[2021-03-12] MEDS ORDERED: Furosemide 40 MG/4 ML VIAL IVP ONE (15:52)
[2021-03-12] MEDS ORDERED: Lidocaine -MPF 1% 5 ML AMPUL INFILT ONE (16:26)
[2021-03-12] MEDS: Albumin 25% 25gram/100mL 25 GM/100 ML IV.SOLN IVC SCH ×2 (17:22→22:07)
[2021-03-12] MEDS: Ringers Solution, Lactated 1,000 ML IVC SCH (20:08)
[2021-03-12] MEDS: OLANZapine 5 MG TAB.RAPDIS PO SCH (20:21)
[2021-03-13] MEDS: Albumin 25% 25gram/100mL 25 GM/100 ML IV.SOLN IVC SCH ×6 (00:38→22:49)
[2021-03-13 05:28] LABS: Basophils % 0.6 %; Hemoglobin 9.3 g/dL (12.9-16.9); Immature Granulocytes % 0.6 % (0-4)
[2021-03-13 05:30] LABS: Eosinophils # 0.1 K/mcL (0.0-0.6); Eosinophils % 4.1 %; Hematocrit 27.5 % (37.5-50.1); Immature Platelets 4.2 % (1.1-6.1); Lymphocytes # 0.6 K/mcL (0.6-4.6); Lymphocytes % 32.4 %; Mean Corpuscular HGB Conc 33.8 g/dL (31.6-35.5); Mean Corpuscular Hemoglobin 34.3 pg (28.0-33.3); Mean Corpuscular Volume 101.5 fL (83.0-100.0); Mean Platelet Volume 10.6 fL (9.4-12.4); Monocytes # 0.3 K/mcL (0.0-1.3); Monocytes % 14.7 %; Neutrophils # 0.8 K/mcL (1.6-8.9); Red Blood Count 2.71 M/mcL (4.19-5.50); Red Cell Distribution Width 14.2 % (11.5-14.5); Segmented Neutrophils % 47.6 %; White Blood Count 1.7 K/mcL (4.3-11.1)
[2021-03-13 05:33] LABS: Platelet Count 58 K/mcL (140-400)
[2021-03-13 05:39] LABS: Alanine Aminotransferase 17 Units/L (7-52); Albumin 3.5 g/dL (3.5-5.7); Albumin/Globulin Ratio 1.4 (1.1-2.2); Alkaline Phosphatase 83 Units/L (34-104); Aspartate Amino Transferase 29 Units/L (13-39); BUN/Creatinine Ratio 15 (6-26); Bilirubin,Direct 0.5 mg/dL (0.0-0.2); Bilirubin,Indirect 0.7 mg/dL (0.0-1.0); Bilirubin,Total 1.2 mg/dL (0.3-1.0); Blood Urea Nitrogen 9 mg/dL (6-20); Calcium 8.7 mg/dL (8.6-10.3); Carbon Dioxide 31 mEq/L (23-29); Chloride 106 mEq/L (98-107); Globulin 2.5 g/dL (2.4-3.5); Glucose 126 mg/dL (70-105); Osmolality,Calculated 292 (280-300); Potassium 3.7 mEq/L (3.5-5.1); Sodium 141 mEq/L (136-145); eGFR For African Americans > 60 (> 60); eGFR For Non-African Americans > 60 (> 60)
[2021-03-13] MEDS: Vancomycin 1,750 MG/517.5 ML IV.SOLN IVPB SCH (08:08)
[2021-03-13] MEDS: Lactulose Oral Soln 20 GM/30 ML UDC PO SCH ×4 (08:09→20:31)
[2021-03-13] MEDS: Furosemide 20 MG TABLET PO SCH (08:09)
[2021-03-13] MEDS: Tenofovir Disoproxil Fumarate 300 MG TABLET PO SCH (08:09)
[2021-03-13] MEDS: Insulin LISPRO 300 UNITS/3 ML VIAL SUBQ SCH ×4 (10:08→20:31)
[2021-03-13] MEDS ORDERED: Furosemide 40 MG/4 ML VIAL IVP ONE (14:15)
[2021-03-13] MEDS: Doxycycline 100 MG CAPSULE PO SCH (20:31)
[2021-03-13] MEDS: OLANZapine 5 MG TAB.RAPDIS PO SCH (20:31)
[2021-03-14 06:54] LABS: Basophils % 1.1 %; Eosinophils # 0.1 K/mcL (0.0-0.6); Eosinophils % 4.9 %; Hematocrit 28.5 % (37.5-50.1); Hemoglobin 9.8 g/dL (12.9-16.9); Immature Granulocytes % 1.1 % (0-4); Immature Platelets 3.9 % (1.1-6.1); Lymphocytes # 0.6 K/mcL (0.6-4.6); Lymphocytes % 33.2 %; Mean Corpuscular HGB Conc 34.4 g/dL (31.6-35.5); Mean Corpuscular Hemoglobin 35.1 pg (28.0-33.3); Mean Corpuscular Volume 102.2 fL (83.0-100.0); Mean Platelet Volume 10.6 fL (9.4-12.4); Monocytes # 0.3 K/mcL (0.0-1.3); Monocytes % 15.8 %; Neutrophils # 0.8 K/mcL (1.6-8.9); Platelet Count 59 K/mcL (140-400); Red Blood Count 2.79 M/mcL (4.19-5.50); Segmented Neutrophils % 43.9 %; White Blood Count 1.8 K/mcL (4.3-11.1)
[2021-03-14 07:11] LABS: Anisocytosis 1+ (Not Present)
[2021-03-14 07:12] LABS: Platelet Estimate Decreased (Normal); Poikilocytosis 1+ (Not Present)
[2021-03-14 07:58] LABS: BUN/Creatinine Ratio 23 (6-26); Blood Urea Nitrogen 13 mg/dL (6-20); Carbon Dioxide 27 mEq/L (23-29); Chloride 104 mEq/L (98-107); Glucose 98 mg/dL (70-105); Osmolality,Calculated 286 (280-300); Potassium 4.3 mEq/L (3.5-5.1); Sodium 138 mEq/L (136-145); eGFR For African Americans > 60 (> 60); eGFR For Non-African Americans > 60 (> 60)
[2021-03-14] MEDS ORDERED: Furosemide 40 MG TABLET PO SCH (09:00)
[2021-03-14] MEDS ORDERED: Furosemide 40 MG/4 ML VIAL IVP ONE (09:38)
[2021-03-14] MEDS: Insulin LISPRO 300 UNITS/3 ML VIAL SUBQ SCH ×4 (10:34→20:32)
[2021-03-14] MEDS: Lactulose Oral Soln 20 GM/30 ML UDC PO SCH ×4 (10:38→20:31)
[2021-03-14] MEDS: Doxycycline 100 MG CAPSULE PO SCH ×2 (10:39→20:31)
[2021-03-14] MEDS: Acetaminophen 325 MG TABLET PO PRN ×2 (10:51→20:31)
[2021-03-14] MEDS: Tenofovir Disoproxil Fumarate 300 MG TABLET PO SCH (11:59)
[2021-03-14] MEDS: OLANZapine 5 MG TAB.RAPDIS PO SCH (20:31)
[2021-03-15] MEDS: Insulin LISPRO 300 UNITS/3 ML VIAL SUBQ SCH ×4 (07:45→20:49)
[2021-03-15] MEDS: Doxycycline 100 MG CAPSULE PO SCH ×2 (09:13→20:49)
[2021-03-15] MEDS: Lactulose Oral Soln 20 GM/30 ML UDC PO SCH ×4 (09:13→20:49)
[2021-03-15] MEDS: Tenofovir Disoproxil Fumarate 300 MG TABLET PO SCH (09:53)
[2021-03-15] MEDS: OLANZapine 5 MG TAB.RAPDIS PO SCH (20:49)
[2021-03-16 03:00] LABS: Immature Granulocytes % 0.8 % (0-4)
[2021-03-16 03:02] LABS: Basophils % 0.8 %; Eosinophils # 0.1 K/mcL (0.0-0.6); Eosinophils % 3.2 %; Hematocrit 30.4 % (37.5-50.1); Hemoglobin 10.1 g/dL (12.9-16.9); Immature Platelets 3.4 % (1.1-6.1); Lymphocytes # 0.6 K/mcL (0.6-4.6); Lymphocytes % 23.7 %; Mean Corpuscular HGB Conc 33.2 g/dL (31.6-35.5); Mean Corpuscular Hemoglobin 33.6 pg (28.0-33.3); Mean Platelet Volume 10.8 fL (9.4-12.4); Monocytes # 0.5 K/mcL (0.0-1.3); Monocytes % 20.5 %; Neutrophils # 1.3 K/mcL (1.6-8.9); Red Blood Count 3.01 M/mcL (4.19-5.50); White Blood Count 2.5 K/mcL (4.3-11.1)
[2021-03-16 03:07] LABS: Platelet Count 59 K/mcL (140-400)
[2021-03-16 03:20] LABS: BUN/Creatinine Ratio 17 (6-26); Blood Urea Nitrogen 10 mg/dL (6-20); Calcium 9.1 mg/dL (8.6-10.3); Carbon Dioxide 24 mEq/L (23-29); Chloride 105 mEq/L (98-107); Glucose 250 mg/dL (70-105); Osmolality,Calculated 287 (280-300); Potassium 4.1 mEq/L (3.5-5.1); Sodium 135 mEq/L (136-145); eGFR For African Americans > 60 (> 60); eGFR For Non-African Americans > 60 (> 60)
[2021-03-16 03:23] LABS: Platelet Estimate Decreased (Normal); Toxic Granulation Present (Not Present)
[2021-03-16] MEDS: Tenofovir Disoproxil Fumarate 300 MG TABLET PO SCH (09:09)
[2021-03-16] MEDS: Doxycycline 100 MG CAPSULE PO SCH (09:10)
[2021-03-16] MEDS: Insulin LISPRO 300 UNITS/3 ML VIAL SUBQ SCH ×3 (09:11→16:43)
[2021-03-16] MEDS: Lactulose Oral Soln 20 GM/30 ML UDC PO SCH ×3 (09:19→17:11)
[2021-03-16 14:50] VITALS: TEMP 98; O2SAT 93
[2021-03-16 18:32] VITALS: BP 143/80; PULSE 104
== END 2021-03-16 19:09 | disposition home or self-care (01) | DRG 710 ==
LOC: EMEROOARM 19:30 → 3ANU 19:30 → SUATTDRO 03-09 00:59 → 3ANU 03-09 02:08
PROVIDERS: ADMIT Student in an Organized Health Care Education/Training Program; ATTEND Student in an Organized Health Care Education/Training Program

== ENCOUNTER 2021-06-05 11:43 | Inpatient (IN) ==
[2021-06-05] MEDS ORDERED: *HR* Midazolam HCl 2 MG/2 ML VIAL ONE (12:55)
[2021-06-05] MEDS ORDERED: Ondansetron 4 MG/2 ML VIAL ONE (12:55)
[2021-06-05] MEDS ORDERED: *HR* FentaNYL (PF) 100 MCG/2 ML VIAL ONE (12:55)
[2021-06-05] MEDS ORDERED: Lidocaine -MPF 2% 5 ML VIAL ONE (12:55)
[2021-06-05] MEDS ORDERED: *HR* Propofol 200 MG/20 ML VIAL IVP ONE (12:55)
[2021-06-05] MEDS: Ringers Solution, Lactated 1,000 ML IVC SCH ×2 (13:12→16:25)
[2021-06-05] MEDS ORDERED: *HR* Rocuronium Bromide 50 MG/5 ML VIAL ONE (13:49)
[2021-06-05] MEDS ORDERED: Ketorolac 30 MG/ML VIAL ONE (14:12)
[2021-06-05] MEDS ORDERED: Lidocaine/EPI 1:100k 1% 30 ML VIAL ONE (14:31)
[2021-06-05] MEDS ORDERED: Ondansetron 4 MG/2 ML VIAL IVP PRN (14:42)
[2021-06-05] MEDS ORDERED: Naloxone 0.4 MG/ML INJ IVP PRN (14:42)
[2021-06-05] MEDS ORDERED: *HR* HYDROcodone/Acet 5/325 mg TABLET PO PRN (14:42)
[2021-06-05] MEDS: *HR* FentaNYL (PF) 100 MCG/2 ML VIAL IVP PRN ×2 (15:11→15:44)
[2021-06-05] MEDS ORDERED: *HR* HYDROmorphone (PF) 1 MG/ML SYRINGE IVP ONE (15:16)
[2021-06-05] MEDS ORDERED: ROPIVACAINE/PF/NS 0.25% 1 EACH SYRINGE INTRAART ONE (15:33)
[2021-06-05 18:00] LABS: BUN/Creatinine Ratio 15 (6-26); Blood Urea Nitrogen 10 mg/dL (6-20); eGFR For African Americans > 60 (> 60); eGFR For Non-African Americans > 60 (> 60)
[2021-06-05] MEDS: Vancomycin 1,750 MG/517.5 ML IV.SOLN IVPB SCH (19:56)
[2021-06-05] MEDS: Piperacillin/Tazobactam 3.375 GM in 0.9 % Sodium Chloride Mini Bag 100 ML IVPB SCH (19:56)
[2021-06-06] MEDS: Piperacillin/Tazobactam 3.375 GM in 0.9 % Sodium Chloride Mini Bag 100 ML IVPB SCH ×2 (04:02→12:05)
[2021-06-06 05:18] LABS: Immature Granulocytes % 0.3 % (0-4)
[2021-06-06 05:20] LABS: Eosinophils % 0.3 %; Hematocrit 29.5 % (37.5-50.1); Hemoglobin 10.5 g/dL (12.9-16.9); Lymphocytes # 0.4 K/mcL (0.6-4.6); Lymphocytes % 9.7 %; Mean Corpuscular HGB Conc 35.6 g/dL (31.6-35.5); Mean Corpuscular Hemoglobin 34.1 pg (28.0-33.3); Mean Corpuscular Volume 95.8 fL (83.0-100.0); Mean Platelet Volume 12.7 fL (9.4-12.4); Monocytes # 0.2 K/mcL (0.0-1.3); Monocytes % 6.4 %; Red Blood Count 3.08 M/mcL (4.19-5.50); Red Cell Distribution Width 14.7 % (11.5-14.5); Segmented Neutrophils % 83.3 %; White Blood Count 3.6 K/mcL (4.3-11.1)
[2021-06-06 05:23] LABS: Platelet Count 41 K/mcL (140-400)
[2021-06-06 05:41] LABS: BUN/Creatinine Ratio 19 (6-26); Blood Urea Nitrogen 11 mg/dL (6-20); C-Reactive Protein < 5 mg/L (Less than 10); Calcium 8.4 mg/dL (8.6-10.3); Carbon Dioxide 23 mEq/L (23-29); Chloride 108 mEq/L (98-107); Glucose 132 mg/dL (70-105); Magnesium 1.7 mg/dL (1.6-2.6); Osmolality,Calculated 281 (280-300); Phosphorous 2.3 mg/dL (2.7-4.5); Potassium 4.3 mEq/L (3.5-5.1); Sodium 135 mEq/L (136-145); eGFR For African Americans > 60 (> 60); eGFR For Non-African Americans > 60 (> 60)
[2021-06-06] MEDS: Vancomycin 1,750 MG/517.5 ML IV.SOLN IVPB SCH ×2 (05:56→18:12)
[2021-06-06] MEDS: *HR* Enoxaparin 40 MG/0.4 ML SYRINGE SQ SCH (05:57)
[2021-06-06] MEDS: Ertapenem 1,000 MG in 0.9 % Sodium Chloride Mini Bag 100 ML IVPB SCH (18:04)
[2021-06-06] MEDS: *HR* HYDROcodone/Acet 5/325 mg TABLET PO PRN (18:05)
[2021-06-07] MEDS: *HR* HYDROcodone/Acet 5/325 mg TABLET PO PRN ×3 (00:05→19:00)
[2021-06-07] MEDS: *HR* Enoxaparin 40 MG/0.4 ML SYRINGE SQ SCH (06:27)
[2021-06-07] MEDS: Vancomycin 2,000 MG/520 ML IV.SOLN IVPB SCH ×2 (08:25→20:43)
[2021-06-07] MEDS: Ertapenem 1,000 MG in 0.9 % Sodium Chloride Mini Bag 100 ML IVPB SCH (15:30)
[2021-06-08 04:33] LABS: Basophils % 0.4 %
[2021-06-08 04:35] LABS: Eosinophils # 0.1 K/mcL (0.0-0.6); Eosinophils % 2.8 %; Hemoglobin 11.1 g/dL (12.9-16.9); Lymphocytes # 0.9 K/mcL (0.6-4.6); Lymphocytes % 34.7 %; Mean Corpuscular HGB Conc 34.7 g/dL (31.6-35.5); Mean Corpuscular Hemoglobin 33.9 pg (28.0-33.3); Mean Corpuscular Volume 97.9 fL (83.0-100.0); Mean Platelet Volume 12.3 fL (9.4-12.4); Monocytes # 0.3 K/mcL (0.0-1.3); Monocytes % 12.7 %; Neutrophils # 1.2 K/mcL (1.6-8.9); Red Blood Count 3.27 M/mcL (4.19-5.50); Segmented Neutrophils % 49.4 %; White Blood Count 2.5 K/mcL (4.3-11.1)
[2021-06-08 04:38] LABS: Platelet Count 46 K/mcL (140-400)
[2021-06-08 04:56] LABS: BUN/Creatinine Ratio 23 (6-26); Blood Urea Nitrogen 11 mg/dL (6-20); Calcium 7.9 mg/dL (8.6-10.3); Carbon Dioxide 25 mEq/L (23-29); Chloride 107 mEq/L (98-107); Glucose 99 mg/dL (70-105); Magnesium 1.7 mg/dL (1.6-2.6); Osmolality,Calculated 283 (280-300); Phosphorous 3.7 mg/dL (2.7-4.5); Potassium 3.5 mEq/L (3.5-5.1); Sodium 137 mEq/L (136-145); eGFR For African Americans > 60 (> 60); eGFR For Non-African Americans > 60 (> 60)
[2021-06-08] MEDS: *HR* Enoxaparin 40 MG/0.4 ML SYRINGE SQ SCH (04:58)
[2021-06-08] MEDS: *HR* HYDROcodone/Acet 5/325 mg TABLET PO PRN (04:59)
[2021-06-08] MEDS: Vancomycin 2,000 MG/520 ML IV.SOLN IVPB SCH ×2 (08:03→20:26)
[2021-06-08] MEDS: Ertapenem 1,000 MG in 0.9 % Sodium Chloride Mini Bag 100 ML IVPB SCH (16:40)
[2021-06-08] MEDS ORDERED: Ringers Solution, Lactated 1,000 ML IVC SCH (18:45)
[2021-06-08 19:58] LABS: ABG Base Excess 2 mEq/L (-2 to 3); ABG HCO3 26 mEq/L (21-27); ABG Oxygen Saturation 95 % (95-98); ABG PCO2 41 mmHg (35-45); ABG PH 7.42 pH Units (7.32-7.45); ABG PO2 73 mmHg (85-104); ABG TCO2 28 mEq/L (20-26)
[2021-06-09 00:45] LABS: Amphetamine Screen,Urine Negative ng/mL (Cutoff=1000); Barbiturate Screen,Urine Negative ng/mL (Cutoff=200); Benzodiazepines Screen,Urine Negative ng/mL (Cutoff=200); Cannabinoid Screen,Urine Negative ng/mL (Cutoff = 50); Cocaine Screen,Urine Negative ng/mL (Cutoff= 300); Opiate Screen,Urine Positive ng/mL (Cutoff=300); Phencyclidine Screen,Urine Negative ng/mL (Cutoff=25)
[2021-06-09] MEDS: *HR* Enoxaparin 40 MG/0.4 ML SYRINGE SQ SCH (06:35)
[2021-06-09] MEDS: Vancomycin 2,000 MG/520 ML IV.SOLN IVPB SCH ×2 (08:52→21:49)
[2021-06-09 11:40] LABS: BUN/Creatinine Ratio 23 (6-26); Blood Urea Nitrogen 10 mg/dL (6-20); eGFR For African Americans > 60 (> 60); eGFR For Non-African Americans > 60 (> 60)
[2021-06-09] MEDS: Ertapenem 1,000 MG in 0.9 % Sodium Chloride Mini Bag 100 ML IVPB SCH (15:36)
[2021-06-09] MEDS: *HR* HYDROcodone/Acet 5/325 mg TABLET PO PRN (20:43)
[2021-06-10] MEDS: *HR* Enoxaparin 40 MG/0.4 ML SYRINGE SQ SCH (06:00)
[2021-06-10] MEDS: Vancomycin 2,000 MG/520 ML IV.SOLN IVPB SCH ×2 (07:58→21:59)
[2021-06-10] MEDS: *HR* HYDROcodone/Acet 5/325 mg TABLET PO PRN ×2 (08:05→14:21)
[2021-06-10 09:57] LABS: BUN/Creatinine Ratio 21 (6-26); Blood Urea Nitrogen 9 mg/dL (6-20); eGFR For African Americans > 60 (> 60); eGFR For Non-African Americans > 60 (> 60)
[2021-06-10] MEDS: Ertapenem 1,000 MG in 0.9 % Sodium Chloride Mini Bag 100 ML IVPB SCH (14:21)
[2021-06-11] MEDS: *HR* HYDROcodone/Acet 5/325 mg TABLET PO PRN ×2 (03:09→09:18)
[2021-06-11] MEDS: *HR* Enoxaparin 40 MG/0.4 ML SYRINGE SQ SCH (06:03)
[2021-06-11 07:31] VITALS: O2SAT 96
[2021-06-11 10:03] LABS: BUN/Creatinine Ratio 20 (6-26); Blood Urea Nitrogen 10 mg/dL (6-20); Calcium 8.5 mg/dL (8.6-10.3); Carbon Dioxide 23 mEq/L (23-29); Chloride 103 mEq/L (98-107); Glucose 125 mg/dL (70-105); Magnesium 1.7 mg/dL (1.6-2.6); Osmolality,Calculated 277 (280-300); Phosphorous 4.1 mg/dL (2.7-4.5); Sodium 133 mEq/L (136-145); eGFR For African Americans > 60 (> 60); eGFR For Non-African Americans > 60 (> 60)
[2021-06-11 10:49] VITALS: BP 110/67; PULSE 68; TEMP 97.7
[2021-06-11] MEDS ORDERED: Vancomycin 2,000 MG/520 ML IV.SOLN IVPB SCH (12:00)
== END 2021-06-11 15:55 | disposition home or self-care (01) | DRG 316 ==
LOC: SDCAOSI 11:43 → 4WAOSI 11:43 → SUATTDRO 16:34
PROVIDERS: ADMIT Family Medicine; ATTEND Internal Medicine